=== PATIENT | female | born 1990 | race Two or more races ===

== ENCOUNTER → 2016-12-03 | Outpatient (CLI) | payer MEDICAID ==
[~2016-12-03] MED LIST: NAPROSYN500 MG PO
== END | disposition short-term general hospital (02) ==
LOC: CLENT 10:56
DX: J03.91 Acute recurrent tonsillitis, unspecified (principal)

== ENCOUNTER → 2017-01-14 | Outpatient (CLI) | payer MEDICAID | END | disposition short-term general hospital (02) | LOC: CLENT 10:14 | DX: Z48.815 Encounter for surgical aftercare following surgery on the digestive system (principal); Z90.89 Acquired absence of other organs ==